=== PATIENT | female | born 1995 | race Caucasian/White ===

== ENCOUNTER 2016-10-13 10:23 | Inpatient (IN) | payer OTHER ==
[2016-10-13] VITALS (18 sets, daily range): BP systolic 92–139; BP diastolic 37–68
[~2016-10-13] VITALS: Ht 152.4 cm; Wt 63.7 kg
[2016-10-13] MEDS ORDERED: TERBUTALINE 1 MG/ML (BRETHINE) 1 ML AMP SC ONE (10:29)
[2016-10-13] MEDS ORDERED: OXYTOCIN INJ 20 UNIT in NS 1000ml 1,000 ML IV SCH (10:29)
[2016-10-13] MEDS ORDERED: oxyCODONE/ACETAMINOPHEN 5MG-325 MG (PERCOCET) TABLET PO PRN (10:30)
[2016-10-13] MEDS ORDERED: SODIUM CHLORIDE FLUSH 3 ML SYR IV PRN (10:30)
[2016-10-13] MEDS ORDERED: ceFAZolin 2,000 MG in SODIUM CHLORIDE VIAL (PF) 20 ML IV SCH (10:30)
[2016-10-13] MEDS ORDERED: SODIUM CHLORIDE FLUSH 10 ML SYR IV PRN (10:30)
[2016-10-13] MEDS ORDERED: LANOLIN OINTMENT 28 GM TUBE TOP PRN (10:30)
[2016-10-13] MEDS ORDERED: METOCLOPRAMIDE 10 MG/2 ML (REGLAN) VIAL IV SCH (10:40)
[2016-10-13] MEDS ORDERED: diphenhydrAMINE 50 MG (BENADRYL) CAPSULE PO PRN (10:40)
[2016-10-13] MEDS ORDERED: ONDANSETRON 2 MG/ML (Z0FRAN) 2 ML VIAL IV PRN (10:40)
[2016-10-13] MEDS ORDERED: diphenhydrAMINE 50 MG/ML INJ (BENADRYL) IV PRN (10:40)
[2016-10-13] MEDS ORDERED: diphenhydrAMINE 50 MG/ML INJ (BENADRYL) IM PRN (10:40)
[2016-10-13] MEDS ORDERED: NALOXONE 0.4 MG/ML (NARCAN) 1 ML VIAL IV PRN ×2 (10:40)
[2016-10-13] MEDS ORDERED: NALBUPHINE 10 MG/ML (NUBAIN) 1 ML AMP IV PRN ×2 (10:40)
[2016-10-13] MEDS ORDERED: diphenhydrAMINE 25 MG (BENADRYL) TABLET PO PRN (10:40)
[2016-10-13] MEDS ORDERED: POT BICARB/SOD BICARB/CIT AC (ALKA-SELTZER GOLD) 1 TABLET.EFF PO SCH (10:40)
[2016-10-13 11:10] LABS: MEAN CORPUSCULAR HGB CONC 34.7 g/dL (31.0-37.0); MEAN PLATELET VOLUME 11.9 FL (6.0-9.5); WHITE BLOOD COUNT 12.29 10^3uL (4.0-11.0)
[2016-10-13 11:13] LABS: ANION GAP 14.9 MEQ/L (3-15); MEAN CORPUSCULAR HEMOGLOBIN 31.6 PG (26.0-34.0)
[2016-10-13] MEDS ORDERED: IBUPROFEN 600 MG (MOTRIN) TAB PO SCH (12:00)
[2016-10-13] MEDS ORDERED: ROPIVACAINE 1% 10 MG/ML (NAROPIN) 20 ML AMPUL ONE (12:05)
[2016-10-13] MEDS ORDERED: morphine PF 0.5 MG/ML (DURAMORPH) 10 ML VIAL IV ONE (12:06)
[2016-10-13] MEDS ORDERED: OXYTOCIN 10 UNIT/ML (PITOCIN) 1 ML VIAL ONE (12:06)
[2016-10-13] MEDS ORDERED: MIDAZOLAM 2 MG/2 ML (VERSED) VIAL ONE (12:47)
[2016-10-13] MEDS ORDERED: ONDANSETRON 2 MG/ML (Z0FRAN) 2 ML VIAL ONE ×2 (13:15→13:16)
[2016-10-13 14:28] LABS: BILIRUBIN,URINE Negative (Negative); CLARITY,URINE Cloudy; COLOR,URINE Yellow; GLUCOSE, URINE (UA) Negative (Negative); LEUKOCYTE ESTERASE ,URINE 3+ (Negative); UROBILINOGEN,URINE 0.2 mg/dL (0.2-1.0)
[2016-10-13 14:45] LABS: URINE CENTRIFUGED VOLUME 12 mL
[2016-10-13] MEDS: DOCUSATE SODIUM 100 MG (COLACE) CAP PO SCH (21:12)
[2016-10-13] MEDS: IBUPROFEN 600 MG (MOTRIN) TAB PO PRN (21:18)
[2016-10-14 00:50] VITALS: BP 108/63
[2016-10-14 05:00] VITALS: BP 121/74
[2016-10-14 08:28] VITALS: BP 112/66
[2016-10-14] MEDS: IBUPROFEN 600 MG (MOTRIN) TAB PO PRN ×2 (09:00→22:02)
[2016-10-14] MEDS: oxyCODONE/ACETAMINOPHEN 5MG-325 MG (PERCOCET) TABLET PO PRN ×2 (13:37→18:54)
[2016-10-14 20:20] VITALS: BP 119/75
[2016-10-14] MEDS: DOCUSATE SODIUM 100 MG (COLACE) CAP PO SCH (22:02)
[2016-10-15] MEDS: oxyCODONE/ACETAMINOPHEN 5MG-325 MG (PERCOCET) TABLET PO PRN ×2 (00:59→10:34)
[2016-10-15] MEDS: IBUPROFEN 600 MG (MOTRIN) TAB PO PRN (04:05)
[2016-10-15 08:22] VITALS: BP 104/67
== END 2016-10-15 11:10 | disposition home or self-care (01) | DRG 766 ==
LOC: OB 10:23
PROVIDERS: ADMIT Obstetrics & Gynecology; ATTEND Obstetrics & Gynecology
PROC: 10D00Z1 Extraction of Products of Conception, Low, Open Approach (ICD-10-PCS; principal; 2016-10-13)
DX: O34.211 Maternal care for low transverse scar from previous cesarean delivery (principal); O99.02 Anemia complicating childbirth; D64.9 Anemia, unspecified; Z3A.38 38 weeks gestation of pregnancy; Z37.0 Single live birth; Z91.040 Latex allergy status
CPT/HCPCS: 36415; 59510; 80048; 81003; 81015; 85027; 85610; 85730; 86850; 86900; 86901; 87088; 94762